=== PATIENT | male | born 1945 | race Caucasian/White ===

== ENCOUNTER 2017-12-16 10:05 | Emergency (ER) | payer OTHER ==
--- NOTE | 2017-12-16 10:12 | EDPHY ---
H & P Stated Complaint: constipaton intermittently for past year Time Seen by Provider: 12/16/17 10:12 - Personal History Tetanus Vaccine Date: >10 years - Medical/Surgical History Hx Asthma: No Hx Chronic Respiratory Disease: No Hx Diabetes: No Hx Cardiac Disease: Yes Hx Renal Disease: No Hx Cirrhosis: No Hx Alcoholism: No Hx HIV/AIDS: No Hx Splenectomy or Spleen Trauma: No Other PMH: CAD, stent, appy - Social History Smoking Status: Never smoked Constitutional: Initial Vital Signs Temperature (C) 36.6 C 12/16/17 10:08 Heart Rate 105 H 12/16/17 10:08 Respiratory Rate 18 12/16/17 10:08 Blood Pressure 151/104 H 12/16/17 10:08 O2 Sat (%) 95 12/16/17 10:08 O2 Delivery Mode Room Air Allergies/Adverse Reactions: No Known Allergies Allergy (Verified 12/16/17 10:07) Home Medications: Medication Instructions Recorded NK [No Known Home Meds] 12/16/17 Medical Decision Making - Diagnostics Imaging Results: Imaging Impressions Abdomen CT 12/16/17 10:18 Impression: 1. The distal descending colon extends into the superficial aspect of the left inguinal canal. This could contribute to intermittent bowel obstruction. 2. No CT evidence of appendicitis, abscess or acute bowel obstruction. 3. Severe spinal stenosis at L3-L4 and right-sided neuroforaminal stenosis at L4 -L5. Findings discussed with Brian Queen MD at 11:59 hour, 12/16/2017. Imaging: Discussed imaging studies w/ square dance caller Radiologist, I viewed and interpreted images myself ED Course/Re-evaluation: CHIEF COMPLAINT: Constipation HISTORY OF PRESENT ILLNESS: The patient is a 72 y/o male with a history of a cardiac stent and appendectomy complaining of intermittent, worsening constipation for the past year. He denies any pain, but is concerned that there is an obstruction. He believes his last normal bowel movement was several weeks ago, but states he does have a bowel movement every other day. Milk of magnesia alleviates his symptoms. He denies having a recent colonoscopy. No chest pain, shortness of breath, urinary complaints, numbness, paresthesias, fevers. REVIEW OF SYSTEMS: A comprehensive 10 system review of systems is otherwise negative aside from elements mentioned in the history of present illness and medical decision making. PHYSICAL EXAM: HR, BP, O2 Sat, RR. Temp noted General Appearance: Alert, well hydrated, appropriate, and non-toxic appearing. Head: Atraumatic without scalp tenderness or obvious injury Eyes: Pupils equal, round, reactive to light and accommodation, EOMI, no trauma , no injection. Ears: Clear bilaterally, no perforation, normal landmarks Nose: Atraumatic, no rhinorrhea, clear. Throat: There is no erythema or exudates, no lesions, normal tonsils, mucus membranes moist. Neck: Supple, 2+ carotid upstroke, nontender, no lymphadenopathy. Respiratory: No retractions, no distress, no wheezes, and no accessory muscle use. Lungs are clear to auscultation bilaterally. Cardiovascular: Regular rate and rhythm, no murmurs, rubs, or gallops. Bilateral carotid, radial, dorsalis pedis, and posterior tibial pulses intact. Good capillary refill all extremities. Gastrointestinal: Abdomen is soft, nontender, non-distended, no masses, no rebound, no guarding, no peritoneal signs. Musculoskeletal: Normal active ROM of all extremities, atraumatic. Neurological: Alert, appropriate, and interactive. The patient has normal DTRs and non-focal cranial nerves, motor, sensory, and cerebellar exam. Skin: No rashes, good turgor, no nodules on palpation. Past medical history: CAD Past surgical history: Cardiac stent, appendectomy Family history: Denies Social history: Lives in [place], single, employed DIAGNOSTICS/PROCEDURES/CRITICAL CARE TIME: Abdominopelvic CT: Descending colon is intermittently going into his inguinal canal. DIFFERENTIAL DIAGNOSIS: The differential diagnosis for the patient's abdominal pain included but was not limited to appendicitis, cholecystitis, hernias, testicular torsion, gastritis, and urinary tract infection. MEDICAL DECISION MAKING: The patient is a 72 y/o male with a history of a cardiac stent and appendectomy presenting with intermittent, worsening constipation for the past year. The patient has a normal exam including a soft and benign abdomen. Abdominopelvic CT and I-Stat ordered. 1201: I spoke with Dr. Sykes, radiologist, who reports the patient has a left inguinal hernia. His descending colon is intermittently going into his inguinal canal. 1204: Reassessed patient and discussed laboratory and imaging findings. I have advised him to follow up with Dr. Sorensen, general surgeon, regarding the intermittent left-sided inguinal hernia. Return precautions provided; patient is comfortable with this plan. - Data Points Laboratory Results: 12/16/17 10:37 POC Hgb 16.3 gm/dL gm/dL (13.7-17.5) POC Hct 48 % % (40-51) POC Sodium 139 mEq/L mEq/L (135-145) POC Potassium 3.8 mEq/L mEq/L (3.3-5.0) POC Chloride 105 mEq/L mEq/L (97-110) POC BUN 12 mg/dL mg/dL (7-23) POC Creatinine 0.8 mg/dL mg/dL (0.7-1.3) POC Glucose 123 mg/dL H mg/dL (70-100) Point of Care Test Results: Chemistry 12/16/17 10:37 POC Sodium 139 mEq/L mEq/L (135-145) POC Potassium 3.8 mEq/L mEq/L (3.3-5.0) POC Chloride 105 mEq/L mEq/L (97-110) POC BUN 12 mg/dL mg/dL (7-23) POC Creatinine 0.8 mg/dL mg/dL (0.7-1.3) POC Glucose 123 mg/dL H mg/dL (70-100) ISTAT H&H 12/16/17 10:37 POC Hgb 16.3 gm/dL gm/dL (13.7-17.5) POC Hct 48 % % (40-51) Departure - Departure Disposition: Home, Routine, Self-Care Clinical Impression: Inguinal hernia Qualifiers: Obstruction and gangrene presence: without obstruction or gangrene Laterality: unilateral Recurrence: recurrent Qualified Code(s): K40.91 - Unilateral inguinal hernia, without obstruction or gangrene, recurrent Condition: Good Instructions: Inguinal Hernia (ED) Additional Instructions: 1. Follow up with a general surgeon within the next week for the intermittent inguinal hernia. 2. Return to the Emergency Department for fever, chest pain, shortness of breath , increasing pain or other worsening of condition. Referrals: LUIS MAN [Primary Care Provider] - As per Instructions Mj Sorensen MD [Medical Doctor] - As per Instructions Report Scribed for: Brian Queen Report Scribed by: Meghann Evangelista Date of Report: 12/16/17 Time of Report: 10:13
[2017-12-16] MEDS ORDERED: IOPAMIDOL (ISOVUE-300) 100 ML BTL ONE (10:46)
[2017-12-16 12:32] VITALS: BP 124/75
== END 2017-12-16 12:32 | disposition home or self-care (01) ==
DX: K40.91 Unilateral inguinal hernia, without obstruction or gangrene, recurrent (principal)
CPT/HCPCS: 74177; 99285; Q9967; 82435-PO; 82565-PO; 82947-PO; 84132-PO; 84295-PO; 84520-PO; 85014-PO